=== PATIENT | female | born 1955 | race Caucasian/White ===

== ENCOUNTER 2025-01-06 19:04 | Emergency (ER) | payer OTHER, MEDICARE ==
[~2025-01-06] VITALS: Ht 175.3 cm; Wt 120.2 kg
[~2025-01-06 19:04] MED LIST: NORC1TAB7 PO
[2025-01-06 19:34] LABS: BASO % 0.4 % (0.0-1.0); EOS # 0.2 10^3/uL (0.0-0.5); EOS % 1.6 % (0.0-3.0); HEMATOCRIT 40.5 % (36.0-47.0); HEMOGLOBIN 13.2 g/dl (12.0-15.5); LYMPH # 1.9 10^3/uL (1.5-5.0); LYMPH % 21.1 % (24.0-44.0); MEAN CORPUSCULAR HEMOGLOBIN 31.1 pg (27.0-33.0); MEAN CORPUSCULAR HGB CONC 32.6 g/dl (32.0-36.5); MEAN CORPUSCULAR VOLUME 95.5 fl (80.0-96.0); MONO # 0.8 10^3/uL (0.0-0.8); MONO % 8.4 % (2.0-8.0); NEUTROPHILS # 6.3 10^3/uL (1.5-8.5); NEUTROPHILS % 68.3 % (36.0-66.0); PLATELET COUNT, AUTOMATED 257 10^3/uL (150-450); RED BLOOD COUNT 4.24 10^6/uL (4.00-5.40); WHITE BLOOD COUNT 9.2 10^3/uL (4.0-10.0)
[2025-01-06 19:59] LABS: LIPASE 44 U/L (12-53)
[2025-01-06 20:00] LABS: CK-MB VALUE MASS < 1.0 NG/ML (<3.6)
[2025-01-06 20:02] LABS: ALBUMIN 3.6 G/DL (3.2-5.2); ALKALINE PHOSPHATASE 96 U/L (35-104); ALT/SGPT 53 U/L (7.0-40); AST/SGOT 85 U/L (<34); BILIRUBIN,DIRECT 0.4 MG/DL (<0.4); BILIRUBIN,TOTAL 0.9 MG/DL (0.3-1.2); BLOOD UREA NITROGEN 21 MG/DL (9-23); CALCIUM LEVEL 8.9 MG/DL (8.3-10.6); CARBON DIOXIDE LEVEL 25 MMOL/L (20-31); CHLORIDE LEVEL 106 MMOL/L (98-107); CREATININE FOR GFR 0.77 MG/DL (0.55-1.30); GLOMERULAR FILTRATION RATE 84.5 (>45); GLUCOSE, FASTING 103 MG/DL (74-106); POTASSIUM SERUM 4.1 MMOL/L (3.5-5.1); SODIUM LEVEL 142 MMOL/L (136-145); TOTAL PROTEIN 7.3 G/DL (5.7-8.2)
[2025-01-06 20:03] LABS: CPK CREATINE PHOSPHOKINASE 197 U/L (34-145)
[2025-01-06 20:06] LABS: INR 0.95
[2025-01-06] MEDS: MAALOX 30 ML SUSP *UDC PO ONE (20:57)
[2025-01-06] MEDS: LIDOCAINE VISCOUS 2% SOLN 15ML UDC PO ONE (20:57)
[2025-01-06] MEDS: ASPIRIN 81MG CHEW TABLET PO ONE (20:58)
[2025-01-06 21:26] LABS: CK-MB VALUE MASS 1.2 NG/ML (<3.6)
[2025-01-06 21:30] LABS: MB/CK RELATIVE INDEX 0.54 (< OR =4)
[2025-01-06] MEDS ORDERED: PEPC1TAB5 PO (22:05)
[2025-01-06 22:26] VITALS: BP 152/88; TEMP 97.2; O2SAT 97
== END 2025-01-06 22:28 | disposition home or self-care (01) ==
LOC: M ED 19:04
DX: R07.9 Chest pain, unspecified (principal); K21.00 Gastro-esophageal reflux disease with esophagitis, without bleeding; R00.1 Bradycardia, unspecified; Z79.1 Long term (current) use of non-steroidal anti-inflammatories (NSAID); Z79.899 Other long term (current) drug therapy

== ENCOUNTER 2025-08-19 08:36 | Emergency (ER) | payer MEDICARE, OTHER ==
[~2025-08-19] VITALS: Ht 180.3 cm; Wt 116.6 kg
[~2025-08-19 08:36] MED LIST changes: +PEPC1TAB5 PO
[2025-08-19 10:20] LABS: BASO # 0.0 10^3/uL (0.0-0.2); BASO % 0.2 % (0.0-1.0); EOS # 0.1 10^3/uL (0.0-0.5); EOS % 1.7 % (0.0-3.0); LYMPH # 1.3 10^3/uL (1.5-5.0); LYMPH % 23.4 % (24.0-44.0); MONO # 0.6 10^3/uL (0.0-0.8); MONO % 11.0 % (2.0-8.0); NEUTROPHILS # 3.4 10^3/uL (1.5-8.5); NEUTROPHILS % 63.3 % (36.0-66.0); PLATELET COUNT, AUTOMATED 269 10^3/uL (150-450)
[2025-08-19] MEDS ORDERED: ISOVUE-370 76% 100 ML VIAL As Ordered ONE (10:43)
[2025-08-19] MEDS ORDERED: HOME MED LIST COMPLETE! XX SCH (11:00)
[2025-08-19 11:46] LABS: ALT/SGPT 29.0 U/L (7.0-40); AST/SGOT 30.0 U/L (<34); CALCIUM LEVEL 8.2 MG/DL (8.3-10.6); CARBON DIOXIDE LEVEL 30.0 MMOL/L (20-31); CHLORIDE LEVEL 103.0 MMOL/L (98-107); CREATININE FOR GFR 0.87 MG/DL (0.55-1.30); GLOMERULAR FILTRATION RATE 72.5 (>45); POTASSIUM SERUM 4.1 MMOL/L (3.5-5.1); SODIUM LEVEL 140.0 MMOL/L (136-145)
[2025-08-19] MEDS ORDERED: AMOX875T2 PO (11:56)
[2025-08-19 12:47] VITALS: BP 161/69; TEMP 98.3; O2SAT 97
== END 2025-08-19 12:50 | disposition home or self-care (01) ==
LOC: M ED 08:36
DX: K57.32 Diverticulitis of large intestine without perforation or abscess without bleeding (principal); K44.9 Diaphragmatic hernia without obstruction or gangrene; Z79.2 Long term (current) use of antibiotics
CPT/HCPCS: 74177; 80047; 80048; 80076; 83690; 85025; 99284; Q9967